=== PATIENT | female | born 1975 | race Hispanic/Latino ===

== ENCOUNTER → 2021-01-10 | Outpatient (CLI) | payer BC ==
[~2021-01-10] MED LIST: ASPIRIN81 MG PO; IBUPROFEN200 MG PO
[2021-01-10 12:57] LABS: BASOPHILS % 0.6 % (0.0-1.0); EOSINOPHILS # (AUTO) 0.2 (0.0-0.4); EOSINOPHILS % 2.8 % (0.0-6.0); HEMATOCRIT 37.8 % (34.2-44.1); HEMOGLOBIN 12.3 g/dL (12.0-16.0); LYMPHOCYTES # (AUTO) 2.4 (1.0-3.2); LYMPHOCYTES % 37.3 % (18.0-39.1); MEAN CORPUSCULAR HEMOGLOBIN 29.4 pg (28-32); MEAN CORPUSCULAR HGB CONC 32.5 g/dL (31-35); MEAN CORPUSCULAR VOLUME 90.2 fL (81-99); MONOCYTES # (AUTO) 0.6 (0.2-0.8); MONOCYTES % 9.3 % (4.4-11.3); NEUTROPHILS # (AUTO) 3.2 (2.1-6.9); NEUTROPHILS % 49.8 % (38.7-80.0); PLATELET COUNT 281 x10e3/uL (140-360); RED BLOOD COUNT 4.19 x10e6/uL (3.6-5.1); RED CELL DISTRIBUTION WIDTH 13.9 % (11.7-14.4)
== END | disposition home or self-care (01) ==
LOC: LAB 14:26 → EDSTATUS 01-14 07:30
PROVIDERS: ATTEND Specialist
DX: Z01.812 Encounter for preprocedural laboratory examination (principal); U07.1 COVID-19; M17.12 Unilateral primary osteoarthritis, left knee
CPT/HCPCS: 36415; 85025; U0002

== ENCOUNTER 2021-02-12 06:32 | Observation (INO) | payer BC ==
[2021-02-07 08:37] LABS: BASOPHILS # (AUTO) 0.1 (0.0-0.1); BASOPHILS % 0.6 % (0.0-1.0); EOSINOPHILS # (AUTO) 0.4 (0.0-0.4); EOSINOPHILS % 5.5 % (0.0-6.0); HEMATOCRIT 38.5 % (34.2-44.1); HEMOGLOBIN 12.3 g/dL (12.0-16.0); LYMPHOCYTES # (AUTO) 3.5 (1.0-3.2); MEAN CORPUSCULAR HEMOGLOBIN 28.8 pg (28-32); MEAN CORPUSCULAR HGB CONC 31.9 g/dL (31-35); MEAN CORPUSCULAR VOLUME 90.2 fL (81-99); MONOCYTES # (AUTO) 0.6 (0.2-0.8); MONOCYTES % 7.9 % (4.4-11.3); NEUTROPHILS # (AUTO) 3.3 (2.1-6.9); NEUTROPHILS % 41.6 % (38.7-80.0); PLATELET COUNT 279 x10e3/uL (140-360); RED BLOOD COUNT 4.27 x10e6/uL (3.6-5.1); RED CELL DISTRIBUTION WIDTH 13.8 % (11.7-14.4)
[~2021-02-12] VITALS: Ht 165.1 cm; Wt 82.6 kg
[~2021-02-12 06:32] MED LIST changes: +VITAMIN A10000 UNIT PO; +VITAMIN C1000 MG PO
[2021-02-12] MEDS ORDERED: SODIUM CHLORIDE 0.9% 50ML 100 ML ONE (07:29)
[2021-02-12] MEDS ORDERED: DEXAMETHASONE SOD PHOS 10 MG/1 ML VIAL ONE (07:40)
[2021-02-12] MEDS ORDERED: CELECOXIB 200 MG CAP ONE (07:40)
[2021-02-12] MEDS ORDERED: GABAPENTIN 300 MG CAP ONE (07:40)
[2021-02-12] MEDS ORDERED: ROPIVACAINE 246.25 MG, EPINEPHRINE HCL 1:1000 1ML 0.5 MG, CLONIDINE HCL 0.08 MG, KETORO... INJ ONE ×5 (08:00)
[2021-02-12] MEDS ORDERED: TRANEXAMIC ACID 1,000 MG/10 ML ML ONE (08:16)
[2021-02-12] MEDS ORDERED: SODIUM CHLORIDE 0.9% 500ML 500 ML ONE (08:16)
[2021-02-12] MEDS ORDERED: Vancomycin IV 1,000 MG ONE (08:16)
[2021-02-12] MEDS ORDERED: MORPHINE SULFATE INJ 10 MG/ML ONE (11:01)
[2021-02-12] MEDS ORDERED: MIDAZOLAM HCL 2 MG/2 ML VIAL ONE (11:01)
[2021-02-12] MEDS ORDERED: FENTANYL CITRATE/PF 100MCG/2 ML INJ ONE ×2 (11:01→11:05)
[2021-02-12] MEDS ORDERED: LIDOCAINE HCL 2% LOCAL INJ 5 ML SDV VIAL INJ ONE (12:47)
[2021-02-12] MEDS ORDERED: POVIDONE IODINE 0.05% 0.05 % ML PO ONE (12:47)
[2021-02-12] MEDS ORDERED: PROPOFOL IV EMULSION 10 MG/ML 20 ML VIAL ONE (12:47)
[2021-02-12] MEDS ORDERED: SEVOFLURANE INHAL SOLN 250 ML PEN BTL ONE (12:47)
[2021-02-12] MEDS ORDERED: LIDOCAINE HCL 2% JELLY 5 ML TUBE ONE (12:47)
[2021-02-12] MEDS ORDERED: ONDANSETRON HCL INJ 2MG/ML 2ML 2 MG/ML VIAL ONE (12:47)
[2021-02-12] MEDS ORDERED: ROPIVACAINE 0.5% 5 MG/ML 30 ML SDV ONE (14:02)
[2021-02-12] MEDS ORDERED: LIDOCAINE 2%/ EPINEPHRINE 20ML MDV ONE (14:02)
[2021-02-12] MEDS ORDERED: SODIUM CHLORIDE 0.9% 1000ML 1,000 ML IV SCH (14:30)
[2021-02-12] MEDS ORDERED: ONDANSETRON HCL INJ 2MG/ML 2ML 2 MG/ML VIAL IV PRN (14:45)
[2021-02-12] MEDS ORDERED: HYDROCODONE/APAP 5MG-325MG TAB PO PRN (14:45)
[2021-02-12] MEDS ORDERED: ACETAMINOPHEN 1000 MG/100 ML IV PRN (14:45)
[2021-02-12] MEDS ORDERED: DIPHENHYDRAMINE HCL INJ 50 MG/ML VIAL IV PRN (14:45)
[2021-02-12 16:26] VITALS: BP 143/85
[2021-02-12] MEDS: CELECOXIB 200 MG CAP PO SCH (18:25)
[2021-02-12] MEDS: DOCUSATE SODIUM 100 MG CAP PO SCH (18:25)
[2021-02-12] MEDS: Cefazolin 1 GM in SODIUM CHLORIDE 0.9% 50ML 50 ML IV SCH ×2 (18:25→22:00)
[2021-02-12] MEDS: KETOROLAC TROMETHAMINE 30 MG/ML VIAL IV PRN (18:26)
[2021-02-12 19:43] VITALS: BP 135/73
[2021-02-12 20:00] VITALS: BP 135/73
[2021-02-12] MEDS ORDERED: ZOLPIDEM TARTRATE 5 MG TAB PO PRN (21:00)
[2021-02-12] MEDS: ASPIRIN 81 MG CHEW TAB PO SCH (22:00)
[2021-02-12 23:45] VITALS: BP 122/58
[2021-02-13] MEDS: KETOROLAC TROMETHAMINE 30 MG/ML VIAL IV PRN (00:45)
[2021-02-13] MEDS: HYDROCODONE/APAP 7.5MG-325MG 1 EA TAB PO PRN ×3 (01:40→11:09)
[2021-02-13 04:11] VITALS: BP 120/73
[2021-02-13 05:37] LABS: BASOPHILS % 0.3 % (0.0-1.0); EOSINOPHILS % 0.2 % (0.0-6.0); HEMOGLOBIN 10.4 g/dL (12.0-16.0); LYMPHOCYTES # (AUTO) 2.2 (1.0-3.2); LYMPHOCYTES % 19.3 % (18.0-39.1); MEAN CORPUSCULAR HEMOGLOBIN 29.2 pg (28-32); MEAN CORPUSCULAR HGB CONC 32.5 g/dL (31-35); MEAN CORPUSCULAR VOLUME 89.9 fL (81-99); MONOCYTES # (AUTO) 1.2 (0.2-0.8); MONOCYTES % 10.4 % (4.4-11.3); NEUTROPHILS % 69.4 % (38.7-80.0); PLATELET COUNT 250 x10e3/uL (140-360); RED BLOOD COUNT 3.56 x10e6/uL (3.6-5.1); RED CELL DISTRIBUTION WIDTH 13.6 % (11.7-14.4)
[2021-02-13] MEDS: Cefazolin 1 GM in SODIUM CHLORIDE 0.9% 50ML 50 ML IV SCH (06:23)
[2021-02-13 06:26] LABS: ANION GAP 11.5 mmol/L (8-16); CALCIUM 7.9 mg/dL (8.4-10.2); CREATININE, SERUM 0.61 mg/dL (0.57-1.11); POTASSIUM 4.5 mmol/L (3.5-5.1)
[2021-02-13 07:38] VITALS: BP 111/67
[2021-02-13 09:40] VITALS: BP 111/67
[2021-02-13] MEDS: CELECOXIB 200 MG CAP PO SCH (09:40)
[2021-02-13] MEDS: DOCUSATE SODIUM 100 MG CAP PO SCH (09:40)
[2021-02-13] MEDS: ASPIRIN 81 MG CHEW TAB PO SCH (09:40)
[2021-02-13 11:39] VITALS: BP 111/67
== END 2021-02-13 12:47 | disposition home or self-care (01) ==
LOC: OR 06:32 → PACU V 13:04 → MED/SURG 14:48
PROVIDERS: ADMIT Specialist; ATTEND Specialist
DX: M17.12 Unilateral primary osteoarthritis, left knee (principal); E05.90 Thyrotoxicosis, unspecified without thyrotoxic crisis or storm; I11.9 Hypertensive heart disease without heart failure; F41.9 Anxiety disorder, unspecified; E66.9 Obesity, unspecified; Z68.30 Body mass index [BMI] 30.0-30.9, adult; Z79.82 Long term (current) use of aspirin; Z01.812 Encounter for preprocedural laboratory examination
CPT/HCPCS: 27447; 36415 ×2; 73560; 80048; 81025; 85025 ×2; 86850; 86900; 97116; 97162; 97530 ×2; C1713 ×2; C1776 ×3; G0378 ×2; J0131; J0171; J0690 ×2; J1100; J1885 ×2; J2001 ×3; J2405; J2704; J2795; J3010; J3370; J7030; J7040; 86920; J2250; J2270